=== PATIENT | male | born 1935 | race Caucasian/White ===

== ENCOUNTER 2017-05-03 11:44 | Emergency (ER) | payer OTHER, MEDICAID ==
[~2017-05-03] VITALS: Ht 160 cm; Wt 90.5 kg
[2017-05-03] MEDS ORDERED: OMEP20 PO (12:10)
[2017-05-03] MEDS ORDERED: INSLAN SQ (12:10)
[2017-05-03] MEDS ORDERED: FOLI0.4T30 PO (12:10)
[2017-05-03] MEDS ORDERED: FURO40 PO (12:10)
[2017-05-03] MEDS ORDERED: ISOS30TA6 PO (12:10)
[2017-05-03] MEDS ORDERED: SITA100 PO (12:10)
[2017-05-03] MEDS ORDERED: FAMO20 PO (12:10)
[2017-05-03] MEDS ORDERED: INSNOV SQ (12:10)
[2017-05-03] MEDS ORDERED: SERT50TA12 PO (12:10)
[2017-05-03] MEDS ORDERED: ASPI81 PO (12:10)
[2017-05-03] MEDS ORDERED: TRAM50TA4 PO (12:10)
[2017-05-03] MEDS ORDERED: DUTA.5 PO (12:10)
[2017-05-03] MEDS ORDERED: TAMS0.4C32 PO (12:10)
[2017-05-03] MEDS ORDERED: METF500T4 PO (12:10)
[2017-05-03] MEDS ORDERED: CARV3 PO (12:10)
[2017-05-03] MEDS ORDERED: SIMV-261 PO (12:10)
[2017-05-03 12:13] LABS: GLUCOSE,POINT OF CARE 208 MG/DL (70-110)
[2017-05-03] MEDS ORDERED: IBUPROFEN 800 MG TABLET PO ONE (13:30)
[2017-05-03 14:01] VITALS: BP 144/78
== END 2017-05-03 14:05 | disposition home or self-care (01) ==
LOC: EMS 11:47
DX: H60.91 Unspecified otitis externa, right ear (principal); I10 Essential (primary) hypertension; E11.9 Type 2 diabetes mellitus without complications; E78.00 Pure hypercholesterolemia, unspecified; Z79.82 Long term (current) use of aspirin; Z79.4 Long term (current) use of insulin; Z88.0 Allergy status to penicillin; Z98.890 Other specified postprocedural states
CPT/HCPCS: 82962; 99283

== ENCOUNTER 2017-05-16 12:05 | Emergency (ER) | payer OTHER, MEDICAID ==
[~2017-05-16] VITALS: Ht 177.8 cm; Wt 127.3 kg
[~2017-05-16 12:05] MED LIST: ASPI81 PO; CARV3 PO; DUTA.5 PO; FAMO20 PO; FOLI0.4T30 PO; FURO40 PO; INSLAN SQ; INSNOV SQ; ISOS30TA6 PO; METF500T4 PO; OMEP20 PO; SERT50TA12 PO; SIMV-261 PO; SITA100 PO; TAMS0.4C32 PO; TRAM50TA4 PO
[2017-05-16 12:22] LABS: GLUCOSE,POINT OF CARE 201 MG/DL (70-110)
[2017-05-16 13:36] LABS: BASOPHILS # (AUTO) 0.02 K/uL (0.00-0.20); BASOPHILS % (AUTO) 0.2 % (0.0-2.0); EOSINOPHILS # (AUTO) 0.15 K/uL (0.00-0.70); EOSINOPHILS % (AUTO) 1.68 % (1.0-6.0); HEMATOCRIT 27.8 % (41-53); HEMOGLOBIN 9.4 g/dL (13.5-17.5); LYMPHOCYTES # (AUTO) 1.4 K/uL (1.0-4.8); LYMPHOCYTES % (AUTO) 15.4 % (22.0-44.0); MEAN CORPUSCULAR HEMOGLOBIN 29.5 pg (26.0-34.0); MEAN CORPUSCULAR HGB CONC 33.9 G/dL (31.0-37.0); MEAN CORPUSCULAR VOLUME 87 fL (80-100); MONOCYTES # (AUTO) 0.7 K/uL (0.1-1.0); MONOCYTES % (AUTO) 7.8 % (2.0-9.0); NEUTROPHILS # (AUTO) 6.8 K/uL (1.8-7.7); NEUTROPHILS % (AUTO) 74.9 % (40.0-70.0); PLATELET COUNT (AUTO) 201 K/uL (150-450); RED BLOOD CELL COUNT(AUTO) 3.19 MIL/uL (4.50-5.90); RED CELL DISTRIBUTION WIDTH 15.8 % (11.5-14.5); WHITE BLOOD COUNT (AUTO) 9.1 K/uL (4.5-11.0)
[2017-05-16 13:51] LABS: B-TYPE NATRIURETIC PEPTIDE 54 pg/mL (0-100)
[2017-05-16 13:58] LABS: ANION GAP 12 mmol/L (8-16); CALCIUM, TOTAL 9.3 mg/dL (8.8-10.5); CARBON DIOXIDE 28 mmol/L (22-29); CHLORIDE 103 mmol/L (98-107); CREATININE 2.01 mg/dL (0.60-1.30); GLOMERULAR FILTR. RATE CALC 32 mL/min (>60); POTASSIUM 3.9 mmol/L (3.5-5.1); SODIUM SERUM 143 mmol/L (136-145); UREA NITROGEN, BLOOD 26 mg/dL (7-18)
[2017-05-16] MEDS ORDERED: MAG HYDROX/AL HYDROX/SIMETH 30 ML SUSP UDCUP PO ONE (14:15)
[2017-05-16] MEDS ORDERED: DICYCLOMINE HCL 10 MG CAPSULE PO ONE (14:15)
[2017-05-16 14:20] LABS: ALANINE AMINOTRANSFERASE 14 U/L (12-78); ALBUMIN 3.5 g/dL (3.4-5.0); ASPARTATE AMINOTRANSFERASE 13 U/L (15-37); BILIRUBIN,TOTAL 0.3 mg/dL (0.1-1.0); CREATINE KINASE MB 1.4 ng/mL (0-5); CREATINE KINASE, TOTAL 79 U/L (39-308)
[2017-05-16 14:36] LABS: APPEARANCE,URINE CLEAR (CLEAR); GLUCOSE, URINE (UA) NEGATIVE (NEGATIVE); KETONES,URINE TRACE mg/dL (NEGATIVE); LEUKOCYTE ESTERASE ,URINE NEGATIVE (NEGATIVE); OCCULT BLOOD,URINE NEGATIVE (NEGATIVE); PROTEIN,URINE TRACE (NEGATIVE)
[2017-05-16 14:40] LABS: ADD UA MICROSCOPIC YES
[2017-05-16 14:44] LABS: RBC,URINE 0-2 /HPF (0-2); SQUAMOUS EPITHELIAL CELL,UR Few /LPF (None Seen); WBC,URINE None Seen /HPF (0-5)
[2017-05-16 15:02] VITALS: BP 145/75
== END 2017-05-16 16:04 | disposition home or self-care (01) ==
LOC: EMS 12:08
DX: R10.9 Unspecified abdominal pain (principal); D64.9 Anemia, unspecified; R79.89 Other specified abnormal findings of blood chemistry; E78.00 Pure hypercholesterolemia, unspecified; E11.9 Type 2 diabetes mellitus without complications; I10 Essential (primary) hypertension; Z79.4 Long term (current) use of insulin; Z88.0 Allergy status to penicillin
CPT/HCPCS: 74022; 82962; 93005; 99285

== ENCOUNTER 2017-05-21 05:30 | Emergency (ER) | payer OTHER, MEDICAID ==
[~2017-05-21] VITALS: Ht 160 cm; Wt 91.0 kg
[2017-05-21 05:52] LABS: GLUCOSE,POINT OF CARE 101 MG/DL (70-110)
[2017-05-21] MEDS ORDERED: DIPH50CA35 PO (05:52)
[2017-05-21] MEDS ORDERED: OMEP20 PO (05:52)
[2017-05-21] MEDS ORDERED: INSNOV SQ (05:52)
[2017-05-21] MEDS ORDERED: CARV25 PO (05:52)
[2017-05-21 06:43] LABS: BASOPHILS # (AUTO) 0.02 K/uL (0.00-0.20); BASOPHILS % (AUTO) 0.2 % (0.0-2.0); EOSINOPHILS # (AUTO) 0.11 K/uL (0.00-0.70); EOSINOPHILS % (AUTO) 1.06 % (1.0-6.0); HEMATOCRIT 24.6 % (41-53); HEMOGLOBIN 8.4 g/dL (13.5-17.5); LYMPHOCYTES % (AUTO) 10.5 % (22.0-44.0); MEAN CORPUSCULAR HGB CONC 34.2 G/dL (31.0-37.0); MEAN CORPUSCULAR VOLUME 85 fL (80-100); MONOCYTES # (AUTO) 0.7 K/uL (0.1-1.0); MONOCYTES % (AUTO) 7.1 % (2.0-9.0); NEUTROPHILS % (AUTO) 81.1 % (40.0-70.0); PLATELET COUNT (AUTO) 195 K/uL (150-450); RED CELL DISTRIBUTION WIDTH 15.3 % (11.5-14.5); WHITE BLOOD COUNT (AUTO) 9.9 K/uL (4.5-11.0)
[2017-05-21 06:53] LABS: ANION GAP 11 mmol/L (8-16); CALCIUM, TOTAL 8.3 mg/dL (8.8-10.5); CARBON DIOXIDE 26 mmol/L (22-29); CHLORIDE 92 mmol/L (98-107); CREATININE 1.03 mg/dL (0.60-1.30); GLOMERULAR FILTR. RATE CALC > 60 mL/min (>60); POTASSIUM 3.5 mmol/L (3.5-5.1); SODIUM SERUM 129 mmol/L (136-145); UREA NITROGEN, BLOOD 21 mg/dL (7-18)
[2017-05-21 06:59] LABS: ALANINE AMINOTRANSFERASE 12 U/L (12-78); ALBUMIN 3.1 g/dL (3.4-5.0); ASPARTATE AMINOTRANSFERASE 13 U/L (15-37); BILIRUBIN,TOTAL 0.4 mg/dL (0.1-1.0); TOTAL PROTEIN, SERUM 6.6 g/dL (6.4-8.2)
[2017-05-21] MEDS ORDERED: IPRATROPIUM BROMIDE 0.5 MG/2.5 ML NEB SOLUTION NEB ONE (07:00)
[2017-05-21] MEDS ORDERED: ALBUTEROL SULFATE 5 MG/ML 20 ML NEB SOLN [BULK] NEB ONE (07:00)
[2017-05-21 07:13] LABS: B-TYPE NATRIURETIC PEPTIDE 137 pg/mL (0-100)
[2017-05-21 08:01] VITALS: BP 150/65
== END 2017-05-21 08:43 | disposition home or self-care (01) ==
LOC: EMS 05:31
DX: J40 Bronchitis, not specified as acute or chronic (principal); H66.91 Otitis media, unspecified, right ear; R10.9 Unspecified abdominal pain; E11.9 Type 2 diabetes mellitus without complications; E78.00 Pure hypercholesterolemia, unspecified; I10 Essential (primary) hypertension; Z79.4 Long term (current) use of insulin; Z79.82 Long term (current) use of aspirin; Z88.0 Allergy status to penicillin
CPT/HCPCS: 82962; 93005; 94640; 99285

== ENCOUNTER 2017-05-29 15:13 | Emergency (ER) | payer OTHER, MEDICAID ==
[~2017-05-29] VITALS: Ht 160 cm; Wt 95.0 kg
[~2017-05-29 15:13] MED LIST changes: +CARV25 PO; -CARV3 PO; +DIPH50CA35 PO
[2017-05-29] MEDS ORDERED: ACETAMINOPHEN 325 MG TABLET PO ONE (15:45)
[2017-05-29 15:52] LABS: GLUCOSE,POINT OF CARE 204 MG/DL (70-110)
[2017-05-29 16:27] LABS: BASOPHILS # (AUTO) 0.01 K/uL (0.00-0.20); BASOPHILS % (AUTO) 0.1 % (0.0-2.0); EOSINOPHILS # (AUTO) 0.08 K/uL (0.00-0.70); EOSINOPHILS % (AUTO) 0.75 % (1.0-6.0); HEMOGLOBIN 8.4 g/dL (13.5-17.5); LYMPHOCYTES # (AUTO) 0.9 K/uL (1.0-4.8); LYMPHOCYTES % (AUTO) 8.2 % (22.0-44.0); MEAN CORPUSCULAR HEMOGLOBIN 29.5 pg (26.0-34.0); MEAN CORPUSCULAR HGB CONC 35.1 G/dL (31.0-37.0); MEAN CORPUSCULAR VOLUME 84 fL (80-100); MONOCYTES # (AUTO) 0.9 K/uL (0.1-1.0); MONOCYTES % (AUTO) 7.9 % (2.0-9.0); NEUTROPHILS % (AUTO) 83.1 % (40.0-70.0); PLATELET COUNT (AUTO) 257 K/uL (150-450); RED BLOOD CELL COUNT(AUTO) 2.86 MIL/uL (4.50-5.90); RED CELL DISTRIBUTION WIDTH 14.6 % (11.5-14.5); WHITE BLOOD COUNT (AUTO) 10.8 K/uL (4.5-11.0)
[2017-05-29 16:40] LABS: ALANINE AMINOTRANSFERASE 17 U/L (12-78); ALBUMIN 3.3 g/dL (3.4-5.0); ANION GAP 5 mmol/L (8-16); ASPARTATE AMINOTRANSFERASE 17 U/L (15-37); BILIRUBIN,TOTAL 0.5 mg/dL (0.1-1.0); CALCIUM, TOTAL 8.3 mg/dL (8.8-10.5); CARBON DIOXIDE 30 mmol/L (22-29); CHLORIDE 80 mmol/L (98-107); CREATININE 0.94 mg/dL (0.60-1.30); GLOMERULAR FILTR. RATE CALC > 60 mL/min (>60); TOTAL PROTEIN, SERUM 6.7 g/dL (6.4-8.2); UREA NITROGEN, BLOOD 14 mg/dL (7-18)
[2017-05-29 16:46] LABS: POTASSIUM 2.8 mmol/L (3.5-5.1); SODIUM SERUM 115 mmol/L (136-145)
[2017-05-29 16:52] LABS: LACTIC ACID 0.8 mmol/L (0.4-2.0)
[2017-05-29] MEDS ORDERED: POTASSIUM CHL 20 MEQ/0.9% NS 1,000 ML IV ONE (17:00)
[2017-05-29 19:51] LABS: ALANINE AMINOTRANSFERASE 17 U/L (12-78); ALBUMIN 3.1 g/dL (3.4-5.0); ANION GAP 8 mmol/L (8-16); ASPARTATE AMINOTRANSFERASE 23 U/L (15-37); BILIRUBIN,TOTAL 0.4 mg/dL (0.1-1.0); CARBON DIOXIDE 29 mmol/L (22-29); CHLORIDE 82 mmol/L (98-107); CREATININE 0.81 mg/dL (0.60-1.30); GLOMERULAR FILTR. RATE CALC > 60 mL/min (>60); POTASSIUM 3.2 mmol/L (3.5-5.1); TOTAL PROTEIN, SERUM 6.4 g/dL (6.4-8.2); UREA NITROGEN, BLOOD 14 mg/dL (7-18)
[2017-05-29 19:55] LABS: SODIUM SERUM 119 mmol/L (136-145)
[2017-05-29] MEDS ORDERED: POTASSIUM CHLORIDE 10% 40 MEQ/30 ML LIQUID UDCUP PO ONE (20:15)
[2017-05-29] MEDS ORDERED: MORPHINE SULFATE 4 MG/ML SYRINGE IVP ONE ×2 (20:15→23:00)
[2017-05-29 21:13] LABS: ALANINE AMINOTRANSFERASE 17 U/L (12-78); ALBUMIN 3.2 g/dL (3.4-5.0); ANION GAP 8 mmol/L (8-16); ASPARTATE AMINOTRANSFERASE 17 U/L (15-37); BILIRUBIN,TOTAL 0.5 mg/dL (0.1-1.0); CALCIUM, TOTAL 8.1 mg/dL (8.8-10.5); CARBON DIOXIDE 29 mmol/L (22-29); CHLORIDE 82 mmol/L (98-107); CREATININE 0.85 mg/dL (0.60-1.30); GLOMERULAR FILTR. RATE CALC > 60 mL/min (>60); POTASSIUM 3.3 mmol/L (3.5-5.1); TOTAL PROTEIN, SERUM 6.5 g/dL (6.4-8.2); UREA NITROGEN, BLOOD 14 mg/dL (7-18)
[2017-05-29 21:14] LABS: SODIUM SERUM 119 mmol/L (136-145)
[2017-05-30 00:44] VITALS: BP 179/81
== END 2017-05-30 00:49 | disposition short-term general hospital (02) ==
LOC: EMS 15:14
DX: R51 Headache (principal); J39.2 Other diseases of pharynx; E87.6 Hypokalemia; E87.1 Hypo-osmolality and hyponatremia; E11.9 Type 2 diabetes mellitus without complications; I10 Essential (primary) hypertension; E78.00 Pure hypercholesterolemia, unspecified; Z79.4 Long term (current) use of insulin; Z79.82 Long term (current) use of aspirin; Z88.0 Allergy status to penicillin
CPT/HCPCS: 36415; 70450; 80053; 82948; 82962; 83605; 83935; 84300; 84484; 85025; 93005; 96365; 96366; 96375; 99291; 99292; J2270; J3480